=== PATIENT | female | born 1940 | race Caucasian/White ===

== ENCOUNTER 2017-05-16 16:39 | Outpatient (CLI) | payer MEDICARE, BC ==
--- NOTE | 2017-05-16 18:37 | ULT ---
LEFT LOWER EXTREMITY VENOUS DOPPLER: Date: 05-16-17 Provided Clinical History: Left leg edema. FINDINGS: Grayscale and color doppler sonography with spectral analysis was performed of the left common femora l, femoral, popliteal, posterior tibial, greater saphenous, and profunda femoral veins demonstrating a normal sonographic appearance to each. IMPRESSION: No sonographic evidence for left lower extremity deep venous thrombosis. POS: [id number]
== END 2017-05-16 16:40 | disposition home or self-care (01) ==
LOC: ULT 16:39
PROVIDERS: ATTEND Family Medicine
DX: M79.662 Pain in left lower leg (principal)

== ENCOUNTER 2020-11-14 15:45 | Emergency (ER) | payer MEDICARE, BC ==
[2020-11-14] MEDS ORDERED: diphenhydrAMINE 50 MG/ML VIAL ONE (16:10)
[2020-11-14] MEDS ORDERED: Boostrix 0.5 ML (Tdap) VIAL ONE (16:10)
== END 2020-11-14 16:48 | disposition home or self-care (01) ==
LOC: ERS 15:45
DX: T63.441A Toxic effect of venom of bees, accidental (unintentional), initial encounter (principal); E11.9 Type 2 diabetes mellitus without complications; I10 Essential (primary) hypertension
CPT/HCPCS: 90715; 99283; J1200

== ENCOUNTER 2024-04-20 14:10 | Emergency (ER) | payer MEDICARE ==
[2024-04-20 15:00] LABS: #Basophils 0.05 10x3/uL (0.0-0.2); %Basophils 0.7 % (0.0-1.0); %Eosinophils 3.4 % (0.0-10.0); %Lymphocytes 29.6 % (21.0-51.0); %Monocytes 6.1 % (0.0-10.0); %Neutrophils 59.8 % (42.0-75.0); Hematocrit 38.4 % (36.0-47.0); Hemoglobin 12.5 g/dL (12.0-16.0); Mean Corpuscular HGB CONC 32.6 g/dL (32.0-36.0); Mean Corpuscular Hemoglobin 31.1 pg (27.0-31.0); Mean Corpuscular Volume 95.5 fL (78.0-98.0); Mean Platelet Volume 10.4 fL (7.4-10.4); Platelet Count 239 10x3/uL (130-400); RBC Distribution Width 13.9 % (11.5-14.5); Red Blood Cell (RBC) Count 4.02 mill/uL (4.20-5.40)
[2024-04-20 15:17] LABS: ALT (SGPT) 25 U/L (8-55); AST (SGOT) 37 U/L (5-34); Albumin 3.4 g/dL (3.4-4.8); Alkaline Phosphatase 451 U/L (40-110); Anion Gap 17 mmol/L (10-20); BUN (Urea Nitrogen) 29 mg/dL (9.8-20.1); Bilirubin, Total 0.5 mg/dL (0.2-1.2); Calc. Creatinine Clearance 0 mL/min (70-130); Calcium 9.5 mg/dL (7.8-10.44); Carbon Dioxide 20 mmol/L (23-31); Chloride 104 mmol/L (98-107); Estimated GFR 39; Globulin 3.5 g/dL (2.4-3.5); Glucose 207 mg/dL (83-110); Potassium 4.3 mmol/L (3.5-5.1); Protein, Total 6.9 g/dL (5.8-8.1); Sodium 137 mmol/L (136-145)
[2024-04-20] MEDS ORDERED: Vancomycin (BATCH) 1.5 GM in Premix 1 BAG IVPB SCH (16:30)
[2024-04-20] MEDS ORDERED: Clindamycin/D5W 900 MG in Premix 1 BAG IVPB SCH (16:30)
[2024-04-20 18:46] LABS: Lactic Acid 0.95 mmol/L (0.5-2.2)
[2024-04-20 18:57] LABS: Bilirubin Negative (Negative); Blood, Urine Negative (Negative); CAUTI Indications for Culture Dysuria,urgency,freq; Clarity Turbid (Clear); Glucose, Urine (Dipstick) Normal (Negative); Ketone, Urine Negative (Negative); Leukocyte 250 Leu/uL (Negative); Nitrite Negative (Negative); Protein, Urine (Dipstick) Negative (Neg-Trace); RBC/HPF 0-3 HPF (0-3); Specific Gravity, Urine 1.005 (1.002-1.036); Squamous Epithelial 0-3 HPF (0-3); Urobilinogen Normal mg/dL (Less than 2); WBC/HPF 21-50 HPF (0-3)
[2024-04-20 19:00] LABS: Bacteria/HPF 1+ HPF (None Seen)
[2024-04-20 19:02] LABS: Urine Culture Reflex Yes Yes
== END 2024-04-20 20:19 | disposition home or self-care (01) ==
LOC: ERS 14:10
DX: E11.621 Type 2 diabetes mellitus with foot ulcer (principal); L97.429 Non-pressure chronic ulcer of left heel and midfoot with unspecified severity; J18.9 Pneumonia, unspecified organism; I10 Essential (primary) hypertension; Z79.4 Long term (current) use of insulin; Z79.84 Long term (current) use of oral hypoglycemic drugs; Z79.899 Other long term (current) drug therapy
CPT/HCPCS: 71045; 73610; 73630; 80053; 81001; 82962; 83605; 85025; 86141; 87040; 87086; 96365; 96366; 96368; 99283; J3370; J3490; 36415; 36416; 87077; 87149; 87186